=== PATIENT | female | born 1950 | race Two or more races ===

== ENCOUNTER 2024-03-04 16:53 | Inpatient (IN) | payer MEDICARE, OTHER ==
[~2024-03-04] VITALS: Ht 160 cm; Wt 63.0 kg
[~2024-03-04 16:53] MED LIST: CLON0.1T PO
[2024-03-04 17:29] VITALS: PULSE 107; RESP 19; O2SAT 92
[2024-03-04 17:38] LABS: Basophils # (auto) 0 10 ^3/uL (0-0.2); Basophils % (auto) 0.1 % (0.0-2.0); Eosinophils # (auto) 0 10 ^3/uL (0-0.8); Hematocrit 34.9 % (36.0-46.0); Hemoglobin 11.3 g/dL (12.2-16.2); Lymphocytes # (auto) 0.6 10 ^3/uL (0.4-5.4); Lymphocytes % (auto) 3.9 % (10.0-50.0); Mean Corpuscular Hemoglobin 28.6 pg (28.0-32.0); Mean Corpuscular Hgb Conc. 32.4 g/dL (32.0-36.0); Mean Corpuscular Volume 88.3 fL (80.0-100.0); Monocytes # (auto) 0.3 10 ^3/uL (0-1.3); Monocytes % (auto) 2.4 % (0.0-12.0); Neutrophils # (auto) 13.3 10 ^3/uL (1.6-8.6); Neutrophils % (auto) 93.6 % (37.0-80.0); Platelet Count (auto) 153 10^3/uL (140-450); Red Blood Cells 3.95 10^6/uL (4.0-5.20); Red Cell Distribution Width 14.2 % (11.8-14.3); White Blood Cell 14.2 10^3/uL (4.4-10.8)
[2024-03-04 17:45] LABS: Chloride 108 mmol/L (98-107); Potassium 3.7 mmol/L (3.5-5.1); Sodium 140 mmol/L (136-145)
[2024-03-04 17:46] LABS: Anion Gap 9 (5-15); Calcium 8.9 mg/dL (8.7-10.4); Carbon Dioxide 23 mmol/L (20-31)
[2024-03-04] MEDS: FUROSEMIDE 40 MG/4 ML VIAL IV ONE (17:48)
[2024-03-04] MEDS: metroNIDAZOLE 500MG/100ML 100 ML IV ONE (17:48)
[2024-03-04] MEDS: SODIUM CHLORIDE 0.9% 1,000 ML IV ONE ×2 (17:49→18:55)
[2024-03-04] MEDS: cefTRIAXone 1GM/50ML D5W 50 ML IV ONE (17:49)
[2024-03-04 17:51] LABS: BUN/Creatinine Ratio 10.4 (10.0-20.0); Blood Urea Nitrogen 34 mg/dL (9-23); Glucose 86 mg/dL (74-106)
[2024-03-04 19:40] LABS: Urine Bacteria FEW /hpf (None Seen); Urine Blood 3+ /uL (Negative); Urine Clarity Turbid (Clear); Urine Color Colorless (Yellow); Urine Mucus FEW (None Seen); Urine Protein, UAD 1+ (Negative); Urine Specific Gravity 1.006 (1.001-1.035); Urine Urobilinogen Normal (Negative); Urine WBC 359 /hpf (0 - 5); Urine WBC Clumps PRESENT /hpf (None Seen); Urine pH 6.5 (5.0-9.0)
[2024-03-04 19:57] VITALS: PULSE 103; RESP 22; O2SAT 97
[2024-03-04] MEDS ORDERED: MORPHINE SULFATE INJ 2 MG/ml SYRG IV PRN (22:00)
[2024-03-04] MEDS ORDERED: NITROGLYCERIN 0.4 MG SL TAB SL PRN (22:00)
[2024-03-04] MEDS ORDERED: ACETAMINOPHEN 325 MG TAB PO PRN (22:00)
[2024-03-04] MEDS ORDERED: FAMOTIDINE (10MG/ML) 2ML VL IV SCH (22:00)
[2024-03-04] MEDS ORDERED: DOCUSATE SOD 100 MG CAP PO PRN (22:00)
[2024-03-04] MEDS ORDERED: ONDANSETRON HCL 4 MG/2 ML VIAL IV PRN (22:00)
[2024-03-04] MEDS: SODIUM CHLOR 0.9% PF (SALINE LOCK) 10ML VIAL/SYR IV SCH (22:16)
[2024-03-04 22:25] VITALS: BP 135/81; PULSE 121; RESP 23; TEMP 98.4; O2SAT 92; O2SAT 99
[2024-03-04 23:48] VITALS: BP 144/82; PULSE 108; RESP 20; TEMP 98.2; O2SAT 96
[2024-03-04] MEDS ORDERED: MET50T PO (23:57)
[2024-03-04] MEDS ORDERED: CLOP75TA70 PO (23:57)
[2024-03-04] MEDS ORDERED: LOSA-534 PO (23:57)
[2024-03-05] VITALS (13 sets, daily range): BP systolic 115–157; BP diastolic 76–97; PULSE 87–103; RESP 16–20; TEMP 97.6–98.7; O2SAT 96–100
[2024-03-05] MEDS: metroNIDAZOLE 500MG/100ML 100 ML IV SCH (05:22)
[2024-03-05 06:18] LABS: Basophils # (auto) 0 10 ^3/uL (0-0.2); Basophils % (auto) 0.1 % (0.0-2.0); Eosinophils # (auto) 0 10 ^3/uL (0-0.8); Eosinophils % (auto) 0.3 % (0.0-7.0); Hematocrit 30.4 % (36.0-46.0); Hemoglobin 10.4 g/dL (12.2-16.2); Lymphocytes # (auto) 0.6 10 ^3/uL (0.4-5.4); Lymphocytes % (auto) 5.8 % (10.0-50.0); Mean Corpuscular Hgb Conc. 34.1 g/dL (32.0-36.0); Mean Corpuscular Volume 87.9 fL (80.0-100.0); Monocytes # (auto) 0.2 10 ^3/uL (0-1.3); Monocytes % (auto) 2.5 % (0.0-12.0); Neutrophils # (auto) 9.1 10 ^3/uL (1.6-8.6); Neutrophils % (auto) 91.3 % (37.0-80.0); Platelet Count (auto) 126 10^3/uL (140-450); Red Blood Cells 3.46 10^6/uL (4.0-5.20); Red Cell Distribution Width 14.1 % (11.8-14.3)
[2024-03-05 06:41] LABS: Albumin 3.2 g/dL (3.2-4.8); Alkaline Phosphatase 79 U/L (46-116); Anion Gap 9 (5-15); Aspartate Aminotransferase 14 U/L (13-40); BUN/Creatinine Ratio 14.4 (10.0-20.0); Bilirubin, Total 0.3 mg/dL (0.2-1.0); Calcium 8.1 mg/dL (8.7-10.4); Carbon Dioxide 23 mmol/L (20-31); Chloride 109 mmol/L (98-107); Glucose 83 mg/dL (74-106); Potassium 3.6 mmol/L (3.5-5.1); Sodium 141 mmol/L (136-145); Total Protein 5.2 g/dL (5.7-8.2)
[2024-03-05 06:50] LABS: Alanine Aminotransferase < 9 U/L (7-40); Blood Urea Nitrogen 44 mg/dL (9-23)
[2024-03-05] MEDS: ALBUTEROL SULF 2.5 MG/0.5ML(0.5%) NEB SOLN NEB PRN (07:43)
[2024-03-05] MEDS: cefTRIAXone 1GM/50ML D5W 50 ML IV SCH (08:56)
[2024-03-05] MEDS: FAMOTIDINE (10MG/ML) 2ML VL IV SCH (08:56)
[2024-03-05] MEDS: FUROSEMIDE 40 MG/4 ML VIAL IV SCH (08:57)
[2024-03-05] MEDS: CLOPIDOGREL BISULFATE 75 MG TAB PO SCH (08:57)
[2024-03-05] MEDS: ASPirin 81 mg TAB PO SCH (08:57)
[2024-03-05] MEDS: SODIUM CHLORIDE 0.9% 1,000 ML IV SCH (16:27)
[2024-03-05] MEDS: HYDROcodone-ACET 5/325MG TAB PO PRN (17:56)
[2024-03-06] VITALS (10 sets, daily range): BP systolic 115–145; BP diastolic 72–90; PULSE 76–97; RESP 16–18; TEMP 98–98.8; O2SAT 92–100
[2024-03-06 07:22] LABS: Anion Gap 10 (5-15); Calcium 8.3 mg/dL (8.7-10.4); Carbon Dioxide 24 mmol/L (20-31); Chloride 107 mmol/L (98-107); Sodium 141 mmol/L (136-145)
[2024-03-06 07:27] LABS: Glucose 92 mg/dL (74-106)
[2024-03-06 07:28] LABS: Blood Urea Nitrogen 40 mg/dL (9-23)
[2024-03-06] MEDS: ENOXAPARIN SOD 30 MG/0.3 ML SYRINGE SC SCH (09:00)
[2024-03-06] MEDS: POTASSIUM EFFERVESENT TAB 25 MEQ PO ONE (10:44)
[2024-03-06 12:23] LABS: INR 1.16 (0.9-1.15); Partial Thromboplastin Time 27.3 SEC (24.5-34.5); Prothrombin Time 12.2 sec (9.3-11.8)
[2024-03-07] VITALS (12 sets, daily range): BP systolic 134–162; BP diastolic 78–95; PULSE 66–98; RESP 16–18; TEMP 97.5–99; O2SAT 93–98
[2024-03-07] MEDS: hydrALAZINE HCL 20 MG/ML VL IV ONE (05:08)
[2024-03-07] MEDS: POTASSIUM EFFERVESENT TAB 25 MEQ PO ONE (08:15)
[2024-03-07] MEDS: METOPROLOL SUCCINATE XL 50 MG TAB PO SCH (09:08)
[2024-03-07 11:31] LABS: Basophils # (auto) 0 10 ^3/uL (0-0.2); Basophils % (auto) 0.5 % (0.0-2.0); Eosinophils # (auto) 0.1 10 ^3/uL (0-0.8); Eosinophils % (auto) 1.5 % (0.0-7.0); Hematocrit 35.8 % (36.0-46.0); Hemoglobin 11.8 g/dL (12.2-16.2); Lymphocytes # (auto) 0.8 10 ^3/uL (0.4-5.4); Lymphocytes % (auto) 11.8 % (10.0-50.0); Mean Corpuscular Hemoglobin 28.9 pg (28.0-32.0); Mean Corpuscular Hgb Conc. 32.9 g/dL (32.0-36.0); Mean Corpuscular Volume 87.7 fL (80.0-100.0); Monocytes # (auto) 0.7 10 ^3/uL (0-1.3); Monocytes % (auto) 10.5 % (0.0-12.0); Neutrophils # (auto) 4.9 10 ^3/uL (1.6-8.6); Neutrophils % (auto) 75.7 % (37.0-80.0); Nucleated Red Blood Cells % 0.1 %; Platelet Count (auto) 121 10^3/uL (140-450); Red Blood Cells 4.09 10^6/uL (4.0-5.20); Red Cell Distribution Width 14.5 % (11.8-14.3); White Blood Cell 6.5 10^3/uL (4.4-10.8)
[2024-03-07 11:39] LABS: Chloride 110 mmol/L (98-107); Potassium 3.2 mmol/L (3.5-5.1); Sodium 142 mmol/L (136-145)
[2024-03-07 11:41] LABS: Anion Gap 5 (5-15); Calcium 8.5 mg/dL (8.7-10.4); Carbon Dioxide 27 mmol/L (20-31)
[2024-03-07 11:46] LABS: BUN/Creatinine Ratio 16.4 (10.0-20.0); Blood Urea Nitrogen 35 mg/dL (9-23); Glucose 86 mg/dL (74-106)
[2024-03-07] MEDS ORDERED: POTASSIUM CHL 20 Meq TABLET PO ONE (15:15)
[2024-03-07] MEDS: POTASSIUM CHL 20 Meq TABLET PO ONE (16:04)
[2024-03-07] MEDS ORDERED: hydrALAZINE HCL 20 MG/ML VL IV PRN (18:45)
[2024-03-08] VITALS (9 sets, daily range): BP systolic 141–169; BP diastolic 72–105; PULSE 72–88; RESP 15–19; TEMP 97.6–98.4; O2SAT 92–99
[2024-03-08 06:53] LABS: Basophils # (auto) 0 10 ^3/uL (0-0.2); Basophils % (auto) 0.4 % (0.0-2.0); Eosinophils # (auto) 0.1 10 ^3/uL (0-0.8); Eosinophils % (auto) 1.7 % (0.0-7.0); Hematocrit 36.4 % (36.0-46.0); Hemoglobin 11.6 g/dL (12.2-16.2); Lymphocytes # (auto) 0.8 10 ^3/uL (0.4-5.4); Lymphocytes % (auto) 11.5 % (10.0-50.0); Mean Corpuscular Hemoglobin 28.5 pg (28.0-32.0); Mean Corpuscular Hgb Conc. 31.9 g/dL (32.0-36.0); Mean Corpuscular Volume 89.5 fL (80.0-100.0); Monocytes # (auto) 0.8 10 ^3/uL (0-1.3); Monocytes % (auto) 12.4 % (0.0-12.0); Neutrophils # (auto) 4.9 10 ^3/uL (1.6-8.6); Nucleated Red Blood Cells % 0.1 %; Platelet Count (auto) 127 10^3/uL (140-450); Red Blood Cells 4.07 10^6/uL (4.0-5.20); Red Cell Distribution Width 14.8 % (11.8-14.3); White Blood Cell 6.6 10^3/uL (4.4-10.8)
[2024-03-08 07:05] LABS: Anion Gap 8 (5-15); Carbon Dioxide 26 mmol/L (20-31); Chloride 108 mmol/L (98-107); Potassium 3.2 mmol/L (3.5-5.1); Sodium 142 mmol/L (136-145)
[2024-03-08 07:06] LABS: Calcium 8.4 mg/dL (8.7-10.4)
[2024-03-08 07:10] LABS: BUN/Creatinine Ratio 16.4 (10.0-20.0); Blood Urea Nitrogen 30 mg/dL (9-23); Glucose 88 mg/dL (74-106)
[2024-03-08] MEDS: POTASSIUM CHL 20 Meq TABLET PO ONE (11:30)
[2024-03-08 12:52] LABS: Uric Acid 7.1 mg/dL (3.1-7.8)
[2024-03-08 12:55] LABS: Phosphorus 2.5 mg/dL (2.4-5.1)
[2024-03-08] MEDS: hydrALAZINE HCL 20 MG/ML VL IV PRN (22:36)
[2024-03-09] VITALS (12 sets, daily range): BP systolic 136–156; BP diastolic 77–93; PULSE 66–86; RESP 13–20; TEMP 98–99.2; O2SAT 95–99
[2024-03-09 07:55] LABS: Basophils # (auto) 0 10 ^3/uL (0-0.2); Basophils % (auto) 0.7 % (0.0-2.0); Eosinophils # (auto) 0.1 10 ^3/uL (0-0.8); Hematocrit 36.4 % (36.0-46.0); Hemoglobin 11.7 g/dL (12.2-16.2); Lymphocytes # (auto) 0.8 10 ^3/uL (0.4-5.4); Lymphocytes % (auto) 14.2 % (10.0-50.0); Mean Corpuscular Hemoglobin 28.2 pg (28.0-32.0); Mean Corpuscular Hgb Conc. 32.1 g/dL (32.0-36.0); Mean Corpuscular Volume 87.8 fL (80.0-100.0); Monocytes # (auto) 0.7 10 ^3/uL (0-1.3); Monocytes % (auto) 13.3 % (0.0-12.0); Neutrophils # (auto) 3.8 10 ^3/uL (1.6-8.6); Neutrophils % (auto) 69.8 % (37.0-80.0); Platelet Count (auto) 149 10^3/uL (140-450); Red Blood Cells 4.15 10^6/uL (4.0-5.20); Red Cell Distribution Width 14.9 % (11.8-14.3); White Blood Cell 5.5 10^3/uL (4.4-10.8)
[2024-03-09 08:05] LABS: Anion Gap 7 (5-15); Carbon Dioxide 27 mmol/L (20-31); Chloride 111 mmol/L (98-107); Potassium 3.9 mmol/L (3.5-5.1); Sodium 145 mmol/L (136-145)
[2024-03-09 08:06] LABS: Calcium 8.3 mg/dL (8.7-10.4)
[2024-03-09 08:11] LABS: BUN/Creatinine Ratio 23.3 (10.0-20.0); Blood Urea Nitrogen 35 mg/dL (9-23); Glucose 93 mg/dL (74-106)
[2024-03-09] MEDS: METOPROLOL SUCCINATE XL 50 MG TAB PO SCH (10:48)
[2024-03-09] MEDS ORDERED: LIDOCAINE 2%HCL (LOCAL ANESTH.) INJ 20ML MDV ONE (12:25)
[2024-03-09] MEDS ORDERED: IODIXANOL 320MG/ML 100ML BTL IV ONE (12:28)
[2024-03-09] MEDS ORDERED: fentaNYL CITRATE 100 MCG/2 ML VL ONE (12:44)
[2024-03-09] MEDS ORDERED: MIDAZOLAM HCL 2MG/2ML 2ml VIAL (1mg/ml) ONE (12:45)
[2024-03-10] VITALS (11 sets, daily range): BP systolic 141–177; BP diastolic 87–99; PULSE 76–87; RESP 16–20; TEMP 36.9; O2SAT 93–98
[2024-03-10] MEDS: cloNIDine HCL 0.1 MG TAB PO PRN (04:37)
[2024-03-10 12:29] LABS: Chloride 109 mmol/L (98-107); Potassium 3.8 mmol/L (3.5-5.1); Sodium 143 mmol/L (136-145)
[2024-03-10 12:31] LABS: Anion Gap 8 (5-15); Calcium 8.6 mg/dL (8.7-10.4); Carbon Dioxide 26 mmol/L (20-31)
[2024-03-10 12:35] LABS: Basophils # (auto) 0 10 ^3/uL (0-0.2); Basophils % (auto) 0.6 % (0.0-2.0); Eosinophils # (auto) 0.3 10 ^3/uL (0-0.8); Eosinophils % (auto) 4.1 % (0.0-7.0); Hematocrit 36.9 % (36.0-46.0); Hemoglobin 11.4 g/dL (12.2-16.2); Lymphocytes # (auto) 0.9 10 ^3/uL (0.4-5.4); Lymphocytes % (auto) 12.5 % (10.0-50.0); Mean Corpuscular Hemoglobin 28.8 pg (28.0-32.0); Mean Corpuscular Hgb Conc. 30.8 g/dL (32.0-36.0); Mean Corpuscular Volume 93.7 fL (80.0-100.0); Monocytes # (auto) 0.8 10 ^3/uL (0-1.3); Monocytes % (auto) 11.2 % (0.0-12.0); Neutrophils % (auto) 71.6 % (37.0-80.0); Nucleated Red Blood Cells % 0.1 %; Platelet Count (auto) 118 10^3/uL (140-450); Red Blood Cells 3.94 10^6/uL (4.0-5.20); Red Cell Distribution Width 15.5 % (11.8-14.3)
[2024-03-10 12:36] LABS: BUN/Creatinine Ratio 22.3 (10.0-20.0); Blood Urea Nitrogen 29 mg/dL (9-23); Glucose 98 mg/dL (74-106)
[2024-03-10] MEDS ORDERED: CEFP200T15 PO (17:53)
[2024-03-10] MEDS ORDERED: METR-344 PO (17:53)
[2024-03-10] MEDS: MORPHINE SULFATE INJ 2 MG/ml SYRG IV PRN (23:19)
[2024-03-11 00:15] VITALS: BP 157/95; PULSE 70; RESP 16; TEMP 97.9; O2SAT 96
[2024-03-11 05:00] VITALS: BP_SYST 157; BP_DIAS 71; BP_DIAS 91; PULSE 79; RESP 14; TEMP 98.4; O2SAT 97
[2024-03-11 08:00] VITALS: PULSE 78
[2024-03-11 08:15] VITALS: PULSE 83; RESP 16; O2SAT 97
[2024-03-11 09:00] VITALS: BP 162/92; PULSE 83; RESP 17; TEMP 98.3; O2SAT 97
[2024-03-11 10:00] VITALS: O2SAT 97
== END 2024-03-11 12:20 | disposition home or self-care (01) | DRG 871 ==
LOC: EDBD 16:53 → ER 16:53 → TELE 21:52 → TELE-WESTW 21:57
PROVIDERS: ADMIT Student in an Organized Health Care Education/Training Program; ATTEND Student in an Organized Health Care Education/Training Program
PROC: 0T9130Z Drainage of Left Kidney with Drainage Device, Percutaneous Approach (ICD-10-PCS; principal; 2024-03-09)
DX: A41.9 Sepsis, unspecified organism (principal); N17.0 Acute kidney failure with tubular necrosis; N13.6 Pyonephrosis; F05 Delirium due to known physiological condition; D64.9 Anemia, unspecified; E86.9 Volume depletion, unspecified; N18.9 Chronic kidney disease, unspecified; E87.6 Hypokalemia; I71.40 Abdominal aortic aneurysm, without rupture, unspecified; Z86.73 Personal history of transient ischemic attack (TIA), and cerebral infarction without residual deficits; Z88.2 Allergy status to sulfonamides; Z87.442 Personal history of urinary calculi; Z79.02 Long term (current) use of antithrombotics/antiplatelets; Z87.891 Personal history of nicotine dependence; F03.90 Unspecified dementia, unspecified severity, without behavioral disturbance, psychotic disturbance, mood disturbance, and anxiety; I12.9 Hypertensive chronic kidney disease with stage 1 through stage 4 chronic kidney disease, or unspecified chronic kidney disease
CPT/HCPCS: 36415; 50432; 74176; 76775; 76942; 80048; 80053; 81001; 82306; 83605; 83615; 83880; 83970; 84100; 84550; 85025; 85610; 85730; 87070; 87077; 87086; 87186; 87205; 93005; 93306; 94640; 99152; 99291; G0378; J2250; J3490; Q9967

== ENCOUNTER 2024-03-16 11:59 | Inpatient (IN) | payer MEDICARE ==
[~2024-03-16] VITALS: Ht 160 cm; Wt 58.2 kg
[~2024-03-16 11:59] MED LIST changes: +CEFP200T15 PO; +CLOP75TA70 PO; +LOSA-534 PO; +MET50T PO; +METR-344 PO
--- NOTE | 2024-03-16 12:56 | ED.PDOC ---
HPI (NEURO) HPI Comments 74y F who presents to the ED for chief complaint of dizziness. Per daughter, pt was PCP office earlier this AM for regular appt. Pt started to have dizziness while ambulating and was referred to the ED. Pt now in the ED, unsteady while ambulating and daughter seen helping pt walk in the ED. Pt has noted leg swelling to the LLE. Pt at [facility] 1 week prior for sepsis and hospitalized. Pt otherwise is alert and oriented x 4 and able to answer all questions. Pt denies headache, chest pain, shortness of breath, nausea, vomiting, fever, cough, chills, dysuria, or hematuria. Pt otherwise denies any other symptoms at this time. Pt has noted history of AAA, HTN and kidney stones. Chief Complaint: Dizziness Time Seen by MD: 12:54 Reviewed Notes: Medications, Allergies Information Source: Patient, Relative Mode of Arrival: Ambulatory Brought in by: daughter Past Medical History PAST MEDICAL HISTORY: CHF, HTN, Kidney Stones Past Medical History (Other): AAA Surgical History: Denies all surgeries CIVIL ENGINEERING PROJECT DESIGNER History: No Pertinent CIVIL ENGINEERING PROJECT DESIGNER History Family History Family History: Reviewed,noncontributory to illness, No family hx of Cancer, No family hx of DM, No family hx of Heart kallie, No family hx of HTN, No family hx ofKidney kallie, No family hx of Liver kallie, No family hx of Lung kallie, No family hx of Stroke Social History Smoker: Non-Smoker Alcohol: Denies ETOH Use Drugs: Denies Drug Use Lives In: Home Constitutional: denies: chills, diaphoresis, fatigue, fever, malaise, sweats, weakness, others EENTM: denies: blurred vision, double vision, ear bleeding, ear discharge, ear drainage, ear pain, ear ringing, eye pain, eye redness, hearing loss, mouth pain, mouth swelling, nasal discharge, nose bleeding, nose congestion, nose pain, photophobia, tearing, throat pain, throat swelling, voice changes, others Respiratory: denies: cough, hemoptysis, orthopnea, SOB at rest, shortness of breath, SOB with excertion, stridor, wheezing, others Cardiovascular: denies: chest pain, dizzy spells, diaphoresis, Dyspnea on exertion, edema, irregular heart beat, left arm pain, lightheadedness, palpitations, PND, syncope, others Gastrointestinal: denies: abdomen distended, abdominal pain, blood streaked bowels, constipated, diarrhea, dysphagia, difficulty swallowing, hematemesis, melena, nausea, poor appetite, poor fluid intake, rectal bleeding, rectal pain, vomiting, others Genitourinary: denies: abnormal vagina bleeding, burning, dyspareunia, dysuria, flank pain, frequency, hematuria, incontinence, pain, , vagina d ischarge, urgency, others Neurological: reports: dizziness; denies: fainting, headache, left sided numbness, left sided weakness, numbness, paresthesia, pre-existing deficit, right sided numbness, right sided weakness, seizure, speech problems, tingling, tremors, weakness, others Musculoskeletal: denies: back pain, gout, joint pain, joint swelling, muscle pain, muscle stiffness, neck pain, others Integumetry: denies: bruises, change in color, change in hair/nails, dryness, laceration, lesions, lumps, rash, wounds, others Allergic/Immunocompromised: denies: Difficulty Healing, Frequent Infections, Hives, Itching, others Hematologic/Lymphatic: denies: anemia, blood clots, easy bleeding, easy bruising, swollen glands, others Endocrine: denies: excessive hunger, excessive sweating, excessive thirst, excessive urination, flushing, intolerance to cold, intolerance to heat, unexplained weight gain, unexplained weight loss, others Psychiatric: denies: anxiety, bipolar disorder, depression, hopeless, panic disorder, schizophrenia, sleepless, suicidal, others All Other Systems: Reviewed and Negative Physical Exam General Appearance: Moderate Distress HEENT: Normal ENT Inspection, Pharynx Normal, TMs Normal Neck: Full Range of Motion, Non-Tender, Normal, Normal Inspection Respiratory: Chest Non-Tender, Lungs Clear, No Accessory Muscle Use, No Respiratory Distress, Normal Breath Sounds Cardiovascular: No Edema, No JVD, No Murmur, No Gallop, Normal Peripheral Pu lses, Regular Rate/Rhythm Breast Exam: Deferred Gastrointestinal: No Organomegaly, Non Tender, No Pulsatile Mass, Normal Bowel Sounds, Soft Genitalia: Deferred Pelvic: Deferred Rectal: Deferred Extremities: Swelling (Bilateral lower extremity) Musculoskeletal : Apperance: Normal Neurologic: Alert, legal analyst II-XII nml as Tested, No Motor Deficits, Normal Affect, Normal Mood, No Sensory Deficits Cerebellar Function: NOT DONE Reflexes: NOT DONE Skin: Dry, Normal Color, Warm Peripheral Pulses: 3+ Radial (R), 3+ Radial (L) Lymphatic: No Adenopathy Was a procedure done? Was a procedure done?: No Differential Diagnosis (SZ) Seizure: Psychogenic Seizure, Closed Head Injury, CVA/TIA General Weakness: Anemia, CVA, Dysrhythmia, Electrolyte imbalance, Encephalopathy, Hypoglycemia, Hypotension, Labyrinthitis, TIA, Vertigo: central, Vertigo: peripheral, Vestibular neuronitis X-Ray, Labs, Meds, VS Vital Signs Date Time Temp Pulse Resp B/P (MAP) Pulse Ox O2 Delivery O2 Flow Rate FiO2 03/16/24 14:23 107 18 154/112 (126) 95 03/16/24 12:00 97.6 94 20 141/99 (113) 96 Lab Test 03/16/24 13:10 03/16/24 12:20 Range/Units White Blood Count 10.3 # 4.4-10.8 10^3/uL Red Blood Count 4.13 4.0-5.20 10^6/uL Hemoglobin 12.0 L 12.2-16.2 g/dL Hematocrit 36.9 36.0-46.0 % Mean Corpuscular Volume 89.2 # 80.0-100.0 fL Mean Corpuscular Hemoglobin 29.0 28.0-32.0 pg Mean Corpuscular Hemoglobin Concent 32.5 32.0-36.0 g/dL Red Cell Distribution Width 14.8 H 11.8-14.3 % Platelet Count 247 140-450 10^3/uL Mean Platelet Volume 10.1 6.9-10.8 fL Neutrophils (%) (Auto) 69.0 37.0-80.0 % Lymphocytes (%) (Auto) 16.4 10.0-50.0 % Monocytes (%) (Auto) 8.9 0.0-12.0 % Eosinophils (%) (Auto) 4.6 0.0-7.0 % Basophils (%) (Auto) 1.1 0.0-2.0 % Neutrophils # (Auto) 7.1 1.6-8.6 10 ^3/uL Lymphocytes # (Auto) 1.7 0.4-5.4 10 ^3/uL Monocytes # (Auto) 0.9 0-1.3 10 ^3/uL Eosinophils # (Auto) 0.5 0-0.8 10 ^3/uL Basophils # (Auto) 0.1 0-0.2 10 ^3/uL Nucleated Red Blood Cells 0.2 % Sodium Level 139 136-145 mmol/L Potassium Level 4.4 3.5-5.1 mmol/L Chloride Level 106 98-107 mmol/L Carbon Dioxide Level 25 20-31 mmol/L Anion Gap 8 5-15 Blood Urea Nitrogen 19 9-23 mg/dL Creatinine 1.72 #H 0.550-1.02 mg/dL Glomerular Filtration Rate Calc 31 >90 mL/min BUN/Creatinine Ratio 11.0 10.0-20.0 Serum Glucose 95 74-106 mg/dL Calcium Level 9.2 8.7-10.4 mg/dL Troponin I High Sensitivity 7 </=34 ng/L POC Glucose 96 70-106 mg/dl PROCEDURE(s): HWOCT - HEAD WITHOUT CONTRAST IMPRESSION: 1. No acute intracranial process. 2. Chronic ischemic changes as described above. Patient alert. Complaining of dizziness. Can not ambulate without falling. Vitals stable. Kidney function elevated. Mild anemia. Blood pressure elevated. Was given clonidine. Possibly need MRI. EKG reviewed does not show any acute changes. Reviewed her previous visit. Explained to the patient. Continue cardiac monitoring. Time of 1ST Reevaluation: 13:30 Reevaluation 1ST: Unchanged Patient Education/Counseling: Diagnosis, Treatment Family Education/Counseling: Diagnosis, Treatment Departure 1 Departure Time of Disposition: 15:20 Impression: Primary Impression: Acute on chronic renal failure Qualified Codes: N17.9 - Acute kidney failure, unspecified; N18.9 - Chronic kidney disease, unspecified Additional Impressions: TIA (transient ischemic attack) Acute on chronic congestive heart failure Qualified Codes: I50.43 - Acute on chronic combined systolic (congestive) and diastolic (congestive) heart failure Disposition: ADMITTED INPATIENT Admit to: Med Surg Condition: Guarded Critical Care Note Critical Care Time?: Yes (45 min-critical care time only) Stability Stability form required: No Heart Score Heart Score: Heart Score Response (Comments) Value History Slightly Suspicious 0 EKG Normal 0 Age >65 2 Risk Factors >3 or Hx ASHD 2 Troponin Normal limit 0 Total 4 I personally scribed for BLANCO AHUJA MD ([email or web address]) on 03/16/24 at 12:56. Electronically submitted by Shree Chowdary ([employer]). I personally scribed for BLANCO AHUJA MD ([email or web address]) on 03/16/24 at 16:45. Electronically submitted by Shree Chowdary ([email or web address]). BLANCO AHUJA MD Mar 16, 2024 12:56
[2024-03-16 13:44] LABS: Basophils # (auto) 0.1 10 ^3/uL (0-0.2); Basophils % (auto) 1.1 % (0.0-2.0); Eosinophils # (auto) 0.5 10 ^3/uL (0-0.8); Eosinophils % (auto) 4.6 % (0.0-7.0); Hematocrit 36.9 % (36.0-46.0); Lymphocytes # (auto) 1.7 10 ^3/uL (0.4-5.4); Lymphocytes % (auto) 16.4 % (10.0-50.0); Mean Corpuscular Hgb Conc. 32.5 g/dL (32.0-36.0); Mean Corpuscular Volume 89.2 fL (80.0-100.0); Monocytes # (auto) 0.9 10 ^3/uL (0-1.3); Monocytes % (auto) 8.9 % (0.0-12.0); Neutrophils # (auto) 7.1 10 ^3/uL (1.6-8.6); Nucleated Red Blood Cells % 0.2 %; Platelet Count (auto) 247 10^3/uL (140-450); Red Blood Cells 4.13 10^6/uL (4.0-5.20); Red Cell Distribution Width 14.8 % (11.8-14.3); White Blood Cell 10.3 10^3/uL (4.4-10.8)
[2024-03-16 13:47] LABS: Chloride 106 mmol/L (98-107); Potassium 4.4 mmol/L (3.5-5.1); Sodium 139 mmol/L (136-145)
[2024-03-16 13:48] LABS: Anion Gap 8 (5-15); Calcium 9.2 mg/dL (8.7-10.4); Carbon Dioxide 25 mmol/L (20-31)
[2024-03-16 13:53] LABS: Blood Urea Nitrogen 19 mg/dL (9-23); Glucose 95 mg/dL (74-106)
--- NOTE | 2024-03-16 15:49 | DVH ---
EXAM: CT HEAD WITHOUT CONTRAST HISTORY: dizzy COMPARISON: None TECHNIQUE: Axial images of the head were obtained and reformatted in coronal and sagittal planes. All CT scans at this medical facility are performed using dose modulation techniques as appropriate t o a performed exam including the following: Automated exposure control was utilized; adjustment of th e MA and/or KV according to patient size; and use of iterative reconstruction technique. CT Dose: CTDI volume is 52.71 mGy. Dose-length product is 863.9 mGy*cm FINDINGS: there is age concordant generalized parenchymal volume loss. There is no evidence of acute intracrani al hemorrhage, mass, mass effect midline shift. There are hypodense foci in the bilateral basal gangl ia and in the right thalamic region likely chronic lacunar infarcts. There are chronic microvascular ischemic changes in the supratentorial white matter. There is no hydrocephalus or extra-axial fluid c ollection. The doan-white matter differentiation appears maintained. The calvarium is intact. There is a retention cysts in the left maxillary sinus. There is partial op acification of the left mastoid air cells. IMPRESSION: 1. No acute intracranial process. 2. Chronic ischemic changes as described above. HS:Y
[2024-03-16] MEDS ORDERED: NITROGLYCERIN 0.4 MG SL TAB SL PRN (20:30)
[2024-03-16] MEDS ORDERED: ONDANSETRON HCL 4 MG/2 ML VIAL IV PRN (20:30)
[2024-03-16] MEDS ORDERED: ACETAMINOPHEN 325 MG TAB PO PRN (20:30)
[2024-03-16] MEDS ORDERED: MORPHINE SULFATE INJ 2 MG/ml SYRG IV PRN ×2 (20:30)
[2024-03-16 21:04] VITALS: PULSE 94; RESP 18; O2SAT 95
--- NOTE | 2024-03-16 21:18 | DVH ---
CAROTID DOPPLER ULTRASOUND HISTORY: dizziness COMPARISON: None TECHNIQUE: Real time doan scale, color Doppler, and spectral duplex images are obtained through the c arotid and vertebral arteries. Findings: Peak systolic velocity right internal carotid artery is 87 cm/s and right common carotid artery is 47 cm/s. Ratio is 1.8. Antegrade flow noted in right vertebral artery. No significant atherosclerotic p laque noted within the right carotid arterial system. Peak systolic velocity left internal carotid artery is 85 cm/s and left common carotid artery is 51 c m/s. Ratio is 1.7. Antegrade flow noted in left vertebral artery. No significant atherosclerotic plaq ue noted within the left carotid arterial system. Impression: 1. No evidence of hemodynamically significant stenosis within the bilateral carotid arterial systems. 2. Antegrade flow within bilateral vertebral arteries. Stenosis ICA/CCA PSV ratio PSV 0-40% < 1.5 25-110 cm/s 40-59% < 1.8 > 120 cm/s 60-79% 1.8-3.7 > 130 cm/s 80-99% > 3.7 < 25 cm/s, > 250 cm/s
[2024-03-16 21:30] LABS: Basophils # (auto) 0.1 10 ^3/uL (0-0.2); Basophils % (auto) 1.2 % (0.0-2.0); Eosinophils # (auto) 0.5 10 ^3/uL (0-0.8); Eosinophils % (auto) 5.6 % (0.0-7.0); Hematocrit 35.3 % (36.0-46.0); Hemoglobin 11.6 g/dL (12.2-16.2); Lymphocytes # (auto) 1.2 10 ^3/uL (0.4-5.4); Lymphocytes % (auto) 13.4 % (10.0-50.0); Mean Corpuscular Hemoglobin 28.5 pg (28.0-32.0); Mean Corpuscular Hgb Conc. 32.8 g/dL (32.0-36.0); Monocytes # (auto) 0.9 10 ^3/uL (0-1.3); Monocytes % (auto) 9.7 % (0.0-12.0); Neutrophils # (auto) 6.5 10 ^3/uL (1.6-8.6); Neutrophils % (auto) 70.1 % (37.0-80.0); Nucleated Red Blood Cells % 0.1 %; Platelet Count (auto) 240 10^3/uL (140-450); Red Blood Cells 4.05 10^6/uL (4.0-5.20); Red Cell Distribution Width 14.5 % (11.8-14.3); White Blood Cell 9.3 10^3/uL (4.4-10.8)
[2024-03-16 21:46] LABS: Albumin 3.7 g/dL (3.2-4.8); Alkaline Phosphatase 80 U/L (46-116); Anion Gap 6 (5-15); Aspartate Aminotransferase 16 U/L (13-40); BUN/Creatinine Ratio 10.8 (10.0-20.0); Blood Urea Nitrogen 18 mg/dL (9-23); Calcium 9.3 mg/dL (8.7-10.4); Carbon Dioxide 29 mmol/L (20-31); Chloride 105 mmol/L (98-107); Glucose 100 mg/dL (74-106); Potassium 3.5 mmol/L (3.5-5.1); Sodium 140 mmol/L (136-145)
[2024-03-16 21:47] LABS: Bilirubin, Total 0.3 mg/dL (0.2-1.0); Total Protein 6.3 g/dL (5.7-8.2)
[2024-03-16 22:00] LABS: Alanine Aminotransferase < 9 U/L (7-40)
[2024-03-16] MEDS ORDERED: ENOXAPARIN SOD 30 MG/0.3 ML SYRINGE SC SCH (22:00)
[2024-03-16] MEDS: SODIUM CHLOR 0.9% PF (SALINE LOCK) 10ML VIAL/SYR IV SCH (22:00)
--- NOTE | 2024-03-16 23:53 | DVHHPRES ---
History of Present Illness Resident Creating Document: RHETT TAVERAS RESIDENT History of Present Illness SOCORRO PENDLETON is a 74 years old female with a PMH of CHF, HTN, nephrolithiasis, aneurysm, CVA, COPD presented to the ED with the chief complaints of dizziness. Today morning patient went to visit her PCP, felt dizziness while ambulating, PCP advised to go to ED for further management. Patient reported yesterday she had mechanical fall in house due to dizziness without LOC, nausea, vomiting. Patient also noted swelling of both lower limbs. Patient recently discharged from this facility 1 week ago after being treated for sepsis. On my assessment patient denies headache, chest pain, SOB, nausea, vomiting, fever, chills, and other associated symptoms Past Medical History CHF, HTN, nephrolithiasis, aneurysm, CVA, COPD Past Surgical History Nephrostomy tube placement left-sided Family History: None Past Social History The patient lives at home, smokes 3 cigarettes per day but denies alcohol or i llicit drugs abuse. Review of Systems Constitutional: No: Fever, Chills, Sweats, Weakness, Malaise, Other Eyes: No: Pain, Vision change, Conjunctivae inflammation, Eyelid inflammation, Other, Redness ENT: No: Ear pain, Ear discharge, Nose pain, Nose discharge, Nose congestion, Mouth pain, Mouth swelling, Throat pain, Throat swelling, Other Respiratory: No: Cough, Dry, Shortness of breath, SOB with excertion, Wheezing, Hemoptysis, Pleuritic Pain, Sputum, Wheezing, Other Cardiovascular: Edema, Lt Headedness Gastrointestinal: No: Nausea, Vomiting, Abdominal Pain, Diarrhea, Constipation, Melena, Hematochezia, Other Genitourinary: No Dysuria, No Frequency, No Incontinence, No Hematuria, No Retention, No Other Musculoskeletal: No: other, neck pain, shoulder pain, arm pain, back pain, hand pain, leg pain, foot pain Skin: No: Rash, Lesions, Jaundice, Bruising, Other Neurological: No: Weakness, Numbness, Incoordination, Change in speech, Confusion, Seizures, Other Allergies: Uncoded Allergies: sulfa (Allergy, Unknown, 03/04/24) Medications Current Medications Medications Dose Ordered Sig/Leydi Route Start Time Stop Time Status Last Admin Dose Admin Sodium Chloride 10 ml Q8HR IV 03/16/24 22:00 Acetaminophen 325 mg Q4HP PRN PO 03/16/24 20:30 Ondansetron HCl 4 mg Q4HP PRN IV 03/16/24 20:30 Morphine Sulfate 2 mg Q4HPRN PRN IV 03/16/24 20:30 Enoxaparin Sodium 30 mg DAILY SC 03/16/24 22:00 Nitroglycerin 0.4 mg Q5MINP PRN SL 03/16/24 20:30 Morphine Sulfate 2 mg Q30M PRN IV 03/16/24 20:30 Exam Vital Signs Vital Signs Date Time Temp Pulse Resp B/P (MAP) Pulse Ox O2 Delivery O2 Flow Rate FiO2 03/16/24 22:00 91 15 152/92 (112) 94 03/16/24 21:04 Room Air* 0 21 03/16/24 21:04 97.4 97.4 Exam Pt is lying on bed General Appearance: Alert, Oriented X3, Cooperative, Not in acute distress HEENT: Atraumatic, Mucous membranes moist/pink Respiratory: Clear to auscultation, Normal air movement, No added sounds Cardiovascular: Regular rate, Normal S1, Normal S2, No murmurs Abdominal: Nephrostomy tube in left side. Active bowel sounds, Soft, no distention, no tenderness Extremities:2+ BLE edema, Normal pulses, No tenderness Skin: No Significant rash, except past surgical scars Neuro: Normal speech, sensorimotor deficits none Psych/Mental Status: Mental status NL, Mood NL Nurse was there as sharperone during examination Labs/Xrays Labs Test 03/16/24 21:24 03/16/24 13:10 03/16/24 12:20 Range/Units White Blood Count 9.3 4.4-10.8 10^3/uL Red Blood Count 4.05 4.0-5.20 10^6/uL Hemoglobin 11.6 L 12.2-16.2 g/dL Hematocrit 35.3 L 36.0-46.0 % Mean Corpuscular Volume 87.0 80.0-100.0 fL Mean Corpuscular Hemoglobin 28.5 28.0-32.0 pg Mean Corpuscular Hemoglobin Concent 32.8 32.0-36.0 g/dL Red Cell Distribution Width 14.5 H 11.8-14.3 % Platelet Count 240 140-450 10^3/uL Mean Platelet Volume 9.7 6.9-10.8 fL Neutrophils (%) (Auto) 70.1 37.0-80.0 % Lymphocytes (%) (Auto) 13.4 10.0-50.0 % Monocytes (%) (Auto) 9.7 0.0-12.0 % Eosinophils (%) (Auto) 5.6 0.0-7.0 % Basophils (%) (Auto) 1.2 0.0-2.0 % Neutrophils # (Auto) 6.5 1.6-8.6 10 ^3/uL Lymphocytes # (Auto) 1.2 0.4-5.4 10 ^3/uL Monocytes # (Auto) 0.9 0-1.3 10 ^3/uL Eosinophils # (Auto) 0.5 0-0.8 10 ^3/uL Basophils # (Auto) 0.1 0-0.2 10 ^3/uL Nucleated Red Blood Cells 0.1 % Sodium Level 140 136-145 mmol/L Potassium Level 3.5 3.5-5.1 mmol/L Chloride Level 105 98-107 mmol/L Carbon Dioxide Level 29 20-31 mmol/L Anion Gap 6 5-15 Blood Urea Nitrogen 18 9-23 mg/dL Creatinine 1.66 H 0.550-1.02 mg/dL Glomerular Filtration Rate Calc 32 >90 mL/min BUN/Creatinine Ratio 10.8 10.0-20.0 Serum Glucose 100 74-106 mg/dL Calcium Level 9.3 8.7-10.4 mg/dL Total Bilirubin 0.3 0.2-1.0 mg/dL Aspartate Amino Transferase (AST) 16 13-40 U/L Alanine Aminotransferase (ALT) < 9 7-40 U/L Alkaline Phosphatase 80 46-116 U/L Total Protein 6.3 5.7-8.2 g/dL Albumin 3.7 3.2-4.8 g/dL Troponin I High Sensitivity 7 </=34 ng/L POC Glucose 96 70-106 mg/dl Assessment/Plan Assessment/Plan # Mechanical fall without LOC # dizziness unspecified -admitted to telemetry minute -Carotid Doppler showed no hemodynamically significant stenosis -head CT showed no acute changes but chronic changes -ordered orthostatic vital -monitor lab # Nephrolithiasis status post left nephrostomy tube # RACHNA prerenal vs obstuctive -monitor lab -ordered kidney ultrasound # Uncontrolled hypertension -monitor blood pressure -resumed home meds No gi ppx Cardiac diet Reconciled home med Goals of care discussed with the patient for more than 27 minutes: Full code status Case management discussed with Dr. Lozoya, patient's nurse Plan discussed with: Patient My Orders Orders - RHETT TAVERAS RESIDENT Procedure Category Date Status Time Admit ADMIT 03/16/24 Transmitted 20:25 Allergies COBY 03/16/24 In Process 20:25 Code Status CODE 03/16/24 Transmitted 20:25 Sodium Chloride Lock PHA 03/16/24 In Process (Saline Lock Ns) 22:00 Acetaminophen Tablet PHA 03/16/24 In Process (Tylenol Tablet) 20:30 Ondansetron Hcl PHA 03/16/24 In Process (Zofran) 20:30 Complete Blood Count LAB 03/17/24 Verified 04:00 Comprehensive LAB 03/17/24 Verified Metabolic Panel 04:00 Cardiac DIET 03/17/24 Transmitted Diet-2gna,Lofat,Lochol Breakfast Echo 2d Mode Cardiac US 03/16/24 Logged DOP 20:25 Carotid Duplx W Color US 03/16/24 Resulted DOP 20:25 Morphine Sulfate PHA 03/16/24 In Process Injection 20:30 Nitroglycerin PHA 03/16/24 In Process Sublingual (Ntrostat 20:30 Morphine Sulfate PHA 03/16/24 In Process Injection 20:30 Oxygen By Nasal RT 03/16/24 Transmitted Cannula 20:25 Stat Ekg For Chest COBY 03/16/24 In Process Pain 20:25 Notify Md Of Changes COBY 03/16/24 In Process From Base 20:25 Electromyographic Technician For COBY 03/16/24 In Process 24 Hours 20:25 Emergency Dysrhythmia COBY 03/16/24 In Process Protocol 20:25 Rhythm Strips Once COBY 03/16/24 In Process Every Shift 20:25 Enoxaparin Sodium PHA 03/16/24 In Process (Lovenox) 22:00 Clopidogrel Bisulfate PHA 03/17/24 In Process (Plavix) 10:00 Losartan Tablet PHA 03/17/24 In Process (Cozaar Tablet) 10:00 Metoprolol Tartrate PHA 03/17/24 In Process Tablet (Lopressor Ta 10:00 PTPTT LAB 03/17/24 Verified 04:00 Hemoglobin A1c LAB 03/16/24 Logged 23:31 Drug Screen LAB 03/16/24 Logged 23:31 Vitamin D, 25-Hydroxy LAB 03/16/24 Logged 23:31 Vitamin B12 LAB 03/16/24 Logged 23:31 Urinalysis LAB 03/16/24 Logged 23:31 Thyroid Stimulating LAB 03/16/24 Logged Hormone 23:31 B-Type Natriuretic LAB 03/16/24 Logged Peptide 23:38 Kidney US 03/16/24 Logged 23:42 RHETT TAVERAS RESIDENT Mar 16, 2024 23:53
[2024-03-16 23:54] VITALS: BP 156/82; PULSE 87; PULSE 88; RESP 18; TEMP 98.2; O2SAT 95; O2SAT 96
[2024-03-17] VITALS (10 sets, daily range): BP systolic 125–153; BP diastolic 71–81; PULSE 72–90; RESP 14–18; TEMP 98–99; O2SAT 91–96
[2024-03-17] MEDS: FUROSEMIDE 40 MG/4 ML VIAL IV ONE
--- NOTE | 2024-03-17 04:07 | DVH ---
INDICATION: 74 years old, Female; CKD. TECHNIQUE: Multiple real-time sonographic images of the kidneys and bladder were obtained. COMPARISON: US KIDNEY on DOS: 03/08/24, US KIDNEY on DOS: 03/06/24 FINDINGS: The right kidney measures 9 cm in length, which is normal in size. The left kidney measures 11 cm in length, which is normal in size. No large intraluminal masses are seen in the bladder SUBCENTIMETER NONOBSTRUCTING RENAL CALCULI MEASURING TO 0.7 CM IN THEl LEFT LOWER POLE and 0.7 CM RI GHT LOWER POLE. THERE IS MILD BILATERAL HYDRONEPHROSIS. IMPRESSION: SUBCENTIMETER NONOBSTRUCTING RENAL CALCULI MEASURING TO 0.7 CM IN THEl LEFT LOWER POLE and 0.7 CM RI GHT LOWER POLE. THERE IS MILD BILATERAL HYDRONEPHROSIS.
[2024-03-17 06:36] LABS: INR 1.13 (0.9-1.15); Partial Thromboplastin Time 25.9 SEC (24.5-34.5); Prothrombin Time 11.9 sec (9.3-11.8)
[2024-03-17 06:39] LABS: Basophils # (auto) 0.1 10 ^3/uL (0-0.2); Basophils % (auto) 1.2 % (0.0-2.0); Eosinophils # (auto) 0.5 10 ^3/uL (0-0.8); Eosinophils % (auto) 6.5 % (0.0-7.0); Hematocrit 32.2 % (36.0-46.0); Hemoglobin 10.6 g/dL (12.2-16.2); Lymphocytes % (auto) 14.7 % (10.0-50.0); Mean Corpuscular Hemoglobin 28.7 pg (28.0-32.0); Mean Corpuscular Hgb Conc. 32.9 g/dL (32.0-36.0); Mean Corpuscular Volume 87.3 fL (80.0-100.0); Monocytes # (auto) 0.7 10 ^3/uL (0-1.3); Monocytes % (auto) 9.5 % (0.0-12.0); Neutrophils # (auto) 4.8 10 ^3/uL (1.6-8.6); Neutrophils % (auto) 68.1 % (37.0-80.0); Nucleated Red Blood Cells % 0.1 %; Platelet Count (auto) 231 10^3/uL (140-450); Red Blood Cells 3.68 10^6/uL (4.0-5.20); Red Cell Distribution Width 14.7 % (11.8-14.3)
[2024-03-17 06:44] LABS: Albumin 3.3 g/dL (3.2-4.8); Alkaline Phosphatase 71 U/L (46-116); Anion Gap 7 (5-15); Aspartate Aminotransferase 13 U/L (13-40); Bilirubin, Total 0.4 mg/dL (0.2-1.0); Blood Urea Nitrogen 17 mg/dL (9-23); Calcium 8.8 mg/dL (8.7-10.4); Carbon Dioxide 29 mmol/L (20-31); Chloride 106 mmol/L (98-107); Glucose 90 mg/dL (74-106); Potassium 3.2 mmol/L (3.5-5.1); Sodium 142 mmol/L (136-145); Total Protein 5.6 g/dL (5.7-8.2)
[2024-03-17 06:49] LABS: Alanine Aminotransferase < 9 U/L (7-40)
--- NOTE | 2024-03-17 09:20 | DVH ---
CHEST RADIOGRAPH Indication:sob Technique: Single frontal view of the chest was obtained Comparison: None FINDINGS: Lines and Tubes: None Lungs: Bibasilar opacities. Pleura: No effusion. No pneumothorax. Cardiomediastinal contours: Unremarkable Bones: No acute osseous abnormality. IMPRESSION: Bibasilar opacities.
[2024-03-17] MEDS ORDERED: IPRATROPIUM BROM 0.5 MG/2.5ML INH SOL NEB PRN (10:00)
[2024-03-17] MEDS ORDERED: FUROSEMIDE 40 MG/4 ML VIAL IV SCH (10:00)
[2024-03-17] MEDS ORDERED: ALBUTEROL SULF 2.5 MG/0.5ML(0.5%) NEB SOLN NEB PRN (10:00)
[2024-03-17] MEDS: LOSARTAN POTASSIUM 50 MG TAB PO SCH (10:22)
[2024-03-17] MEDS: CLOPIDOGREL BISULFATE 75 MG TAB PO SCH (10:23)
[2024-03-17] MEDS: METOPROLOL TARTRATE 50 MG TAB PO SCH (10:23)
[2024-03-17] MEDS: POTASSIUM EFFERVESENT TAB 25 MEQ PO ONE (15:28)
[2024-03-17] MEDS: ENOXAPARIN SOD 30 MG/0.3 ML SYRINGE SC SCH (15:29)
--- NOTE | 2024-03-17 18:44 | DVHPNRES ---
Progress Note Date Seen: Mar 17, 2024 Resident Creating Document: NIC WRAY Has the PT tested + for MRSA If YES, has PT been informed?: No Medical Necessity Reason Pt with a Central, PICC or Fol: No Subjective Review of Systems SOCORRO PENDLETON is a 74-year-old female with a PMH of CHF, HTN, nephrolithiasis, aneurysm, CVA, and COPD who presented to the ED with the chief complaint of dizziness. The patient has dizziness since 2 years(post CVA) which has recently increased. This morning, the patient went to visit her PCP and felt dizzy while ambulating. The PCP advised her to go to the ED for further management. The patient reported that yesterday she had a mechanical fall at home due to dizziness without LOC, nausea, or vomiting. She also noted swelling of both lower limbs. The patient was recently discharged from this facility 1 week ago after being treated for sepsis and was recommended to use a wheelchair and home health care. On my assessment, the patient denies headache, chest pain, SOB, nausea, vomiting, fever, chills, and other associated symptoms. PMHx: CHF, HTN, nephrolithiasis, aneurysm, CVA, COPD PSHx: Nephrostomy tube placement left-sided due to renal stone Family history: Noncontributory Social history: The patient lives at home with her daughter, smokes 3 cigarettes per day, but denies alcohol or illicit drug abuse Home medication: Losartan, metoprolol, Plavix Allergic history: On physical examination, the patient was unremarkable. Lab studies showed potassium at 3.2, otherwise within normal limits. The patient was admitted for evaluation of dizziness. CT scan showed ischemic changes, carotid ultrasound was normal, and renal ultrasound was also normal. Fall precautions were taken and home medications were resumed. Patient reports: No new complaints Changes from previous H/P or p: No Changes Objective vital signs Vital Sign Date Time Temp Pulse Resp B/P (MAP) Pulse Ox O2 Delivery O2 Flow Rate FiO2 03/17/24 16:47 98.0 72 16 135/71 95 98.0 03/17/24 07:54 Room Air* 0 21 Total Intake and Output 03/16/24 03/16/24 03/17/24 15:00 23:00 07:00 Intake Total 120 ml Balance 120 ml medications Current Medications Medications Dose Ordered Sig/Leydi Route Start Time Stop Time Status Last Admin Dose Admin Sodium Chloride 10 ml Q8HR IV 03/16/24 22:00 03/17/24 15:31 10 ML Acetaminophen 325 mg Q4HP PRN PO 03/16/24 20:30 Ondansetron HCl 4 mg Q4HP PRN IV 03/16/24 20:30 Clopidogrel Bisulfate 75 mg DAILY PO 03/17/24 10:00 03/17/24 10:23 75 MG Losartan Potassium 50 mg BID PO 03/17/24 10:00 03/17/24 10:22 50 MG Metoprolol Tartrate 50 mg DAILY PO 03/17/24 10:00 03/17/24 10:23 50 MG Enoxaparin Sodium 30 mg DAILY SC 03/17/24 10:29 03/17/24 15:29 30 MG Ipratropium [place] 0.5 mg Q4HPRN PRN NEB 03/17/24 10:00 Albuterol 2.5 mg Q3HPRN PRN NEB 03/17/24 10:00 Examination General Appearance: Alert, Oriented X3, Cooperative, No acute distress HEENT: Atraumatic, PERRLA, EOMI, Mucous membrane moist/pink Respiratory: Clear to auscultation, Normal air movement Cardiovascular: Regular rate, Normal S1, Normal S2, No murmurs, no chest wall tenderness Abdominal: Normal bowel sounds, Soft, No tenderness, No hepatospenomegaly, No masses Extremities: No clubbing, No cyanosis, No edema, Normal pulses, No tenderness/swelling Skin: No rashes, No breakdown, No significant lesion laboratory and microbiology Laboratory Tests 03/17/24 05:54 Test 03/17/24 05:54 Range/Units Serum Glucose 90 74-106 mg/dL Microbiology Date/Time Source Procedure Growth Status 03/16/24 23:00 Nose MRSA Screen - Final Complete Labs and/or images reviewed: Labs reviewed by me, Image(s) reviewed by me Problem List/Assessment/Plan Problem List/Assessment/Plan Mechanical fall without LOC Dizziness unspecified Patient has chronic dizziness, since 2 years post CVA Head CT scan, carotid ultrasound are normal Check orthostatic vitals Continue telemetry Nephrolithiasis status post left nephrostomy tube History of kidney stone Patient has an appointment with the Urology at outpatient basis Monitoring RACHNA, likely postrenal Kidney ultrasound Monitoring Uncontrolled hypertension Resume medical Hydralazine 10 mg p.r.n. DVT prophylaxis Lovenox Code status Full Code Diet Cardiac diet Case discussed with Dr. Lozoya Plan discussed with: Patient, Daughter, Son, Other (RN) My Orders My Orders Orders - NIC WRAY Procedure Category Date Status Time Orthostatic Vital ORDERS 03/17/24 Transmitted Signs 08:28 Enoxaparin Sodium PHA 03/17/24 In Process (Lovenox) 10:29 NIC WRAY Mar 17, 2024 18:44 CATHY RDZ MD Mar 17, 2024 20:28
[2024-03-18] VITALS (7 sets, daily range): BP systolic 104–144; BP diastolic 72–84; PULSE 69–90; RESP 16–20; TEMP 36.8; O2SAT 85–96
[2024-03-18 07:39] LABS: Amphetamine Screen, Urine Neg (NEGATIVE); Barbiturate Scree,Urine Neg (NEGATIVE); Benzodiazephine Screen, Urine Neg (NEGATIVE)
[2024-03-18 07:40] LABS: Cocaine Screen, Urine Neg (NEGATIVE); Opiate Scree,Urine Neg (NEGATIVE)
[2024-03-18 07:41] LABS: Cannabinoid Screen, Urine Neg (NEGATIVE); Creatinine, Urine 127.1 mg/dL (30.0-125.0); Phencyclidine Screen, Urine Neg (NEGATIVE)
[2024-03-18 07:50] LABS: Urine Bacteria FEW /hpf (None Seen); Urine Blood 2+ /uL (Negative); Urine Budding Yeast MANY /hpf (None Seen); Urine Clarity Turbid (Clear); Urine Color Light-Orange (Yellow); Urine Protein, UAD 2+ (Negative); Urine Specific Gravity 1.013 (1.001-1.035); Urine Urobilinogen Normal (Negative); Urine WBC 334 /hpf (0 - 5)
[2024-03-18 09:24] LABS: Basophils # (auto) 0.1 10 ^3/uL (0-0.2); Basophils % (auto) 1.4 % (0.0-2.0); Eosinophils # (auto) 0.4 10 ^3/uL (0-0.8); Eosinophils % (auto) 4.5 % (0.0-7.0); Hematocrit 32.4 % (36.0-46.0); Hemoglobin 10.6 g/dL (12.2-16.2); Lymphocytes % (auto) 12.3 % (10.0-50.0); Mean Corpuscular Hemoglobin 28.9 pg (28.0-32.0); Mean Corpuscular Hgb Conc. 32.8 g/dL (32.0-36.0); Mean Corpuscular Volume 88.2 fL (80.0-100.0); Monocytes % (auto) 12.2 % (0.0-12.0); Neutrophils # (auto) 5.9 10 ^3/uL (1.6-8.6); Neutrophils % (auto) 69.6 % (37.0-80.0); Platelet Count (auto) 214 10^3/uL (140-450); Red Blood Cells 3.68 10^6/uL (4.0-5.20); Red Cell Distribution Width 14.9 % (11.8-14.3); White Blood Cell 8.4 10^3/uL (4.4-10.8)
[2024-03-18 09:35] LABS: Albumin 3.2 g/dL (3.2-4.8); Alkaline Phosphatase 70 U/L (46-116); Anion Gap 4 (5-15); Aspartate Aminotransferase 10 U/L (13-40); Blood Urea Nitrogen 14 mg/dL (9-23); Calcium 8.8 mg/dL (8.7-10.4); Carbon Dioxide 31 mmol/L (20-31); Chloride 106 mmol/L (98-107); Glucose 92 mg/dL (74-106); Potassium 3.5 mmol/L (3.5-5.1); Sodium 141 mmol/L (136-145)
[2024-03-18 09:36] LABS: Bilirubin, Total 0.5 mg/dL (0.2-1.0); Total Protein 5.5 g/dL (5.7-8.2)
[2024-03-18 10:07] LABS: Alanine Aminotransferase < 9 U/L (7-40)
--- NOTE | 2024-03-18 15:08 | DVHDSRES ---
Discharge Summary Date of Admission Resident Creating Document: NIC WRAY RESDIENT Mar 16, 2024 at 20:25 Date of Discharge: Mar 18, 2024 Admitting Diagnosis Dizziness Labs/Diagnostic Data: Laboratory Results Test 03/18/24 08:48 03/18/24 05:37 03/17/24 05:54 03/16/24 13:10 White Blood Count 8.4 10^3/uL (4.4-10.8) Red Blood Count 3.68 10^6/uL (4.0-5.20) Hemoglobin 10.6 g/dL (12.2-16.2) Hematocrit 32.4 % (36.0-46.0) Mean Corpuscular Volume 88.2 fL (80.0-100.0) Mean Corpuscular Hemoglobin 28.9 pg (28.0-32.0) Mean Corpuscular Hemoglobin Concent 32.8 g/dL (32.0-36.0) Red Cell Distribution Width 14.9 % (11.8-14.3) Platelet Count 214 10^3/uL (140-450) Mean Platelet Volume 10.1 fL (6.9-10.8) Neutrophils (%) (Auto) 69.6 % (37.0-80.0) Lymphocytes (%) (Auto) 12.3 % (10.0-50.0) Monocytes (%) (Auto) 12.2 % (0.0-12.0) Eosinophils (%) (Auto) 4.5 % (0.0-7.0) Basophils (%) (Auto) 1.4 % (0.0-2.0) Neutrophils # (Auto) 5.9 10 ^3/uL (1.6-8.6) Lymphocytes # (Auto) 1.0 10 ^3/uL (0.4-5.4) Monocytes # (Auto) 1.0 10 ^3/uL (0-1.3) Eosinophils # (Auto) 0.4 10 ^3/uL (0-0.8) Basophils # (Auto) 0.1 10 ^3/uL (0-0.2) Nucleated Red Blood Cells 0.0 % Sodium Level 141 mmol/L (136-145) Potassium Level 3.5 mmol/L (3.5-5.1) Chloride Level 106 mmol/L (98-107) Carbon Dioxide Level 31 mmol/L (20-31) Anion Gap 4 (5-15) Blood Urea Nitrogen 14 mg/dL (9-23) Creatinine 1.56 mg/dL (0.550-1.02) Glomerular Filtration Rate Calc 34 mL/min (>90) BUN/Creatinine Ratio 9.0 (10.0-20.0) Serum Glucose 92 mg/dL (74-106) Calcium Level 8.8 mg/dL (8.7-10.4) Total Bilirubin 0.5 mg/dL (0.2-1.0) Aspartate Amino Transferase (AST) 10 U/L (13-40) Alanine Aminotransferase (ALT) < 9 U/L (7-40) Alkaline Phosphatase 70 U/L (46-116) Total Protein 5.5 g/dL (5.7-8.2) Albumin 3.2 g/dL (3.2-4.8) Urine Color Light-orange (Yellow) Urine Clarity Turbid (Clear) Urine pH 6.0 (5.0-9.0) Urine Specific [place] 1.013 (1.001-1.035) Urine Protein 2+ (Negative) Urine Ketones Negative (Negative) Urine Blood 2+ /uL (Negative) Urine Nitrite Negative (Negative) Urine Bilirubin Negative (Negative) Urine Urobilinogen Normal mg/dL (Negative) Urine Leukocyte Esterase 3+ /uL (Negative) Urine RBC 67 /hpf (0 - 4) Urine WBC 334 /hpf (0 - 5) Urine Squamous Epithelial Cells Few /hpf (<5) Urine Bacteria Few /hpf (None Seen) Urine Yeast (Budding) Many /hpf (None Seen) Urine Creatinine 127.10 mg/dL (30.0-125.0) Urine Sodium 55 mmol/L (40-220) Urine Glucose Normal mg/dL (Normal) Urine Opiates Screen Neg (NEGATIVE) Urine Fentanyl Screen Neg (NEGATIVE) Urine Barbiturates Screen Neg (NEGATIVE) Urine Phencyclidine Screen Neg (NEGATIVE) Urine Amphetamines Screen Neg (NEGATIVE) Urine Benzodiazepines Screen Neg (NEGATIVE) Urine Cocaine Screen Neg (NEGATIVE) Urine Cannabinoids Screen Neg (NEGATIVE) Prothrombin Time 11.9 sec (9.3-11.8) Prothrombin Time INR 1.13 (0.9-1.15) Activated Partial Thromboplast Time 25.9 SEC (24.5-34.5) Hemoglobin A1c 5.1 % A1C (<5.7) B-Type Natriuretic Peptide 63.84 pg/mL (0-100) Vitamin B12 Level 556 pg/mL (211-911) Vitamin D 25-Hydroxy 31.5 ng/mL (30.0-100) Thyroid Stimulating Hormone (TSH) 1.35 uIU/mL (0.55-4.78) Troponin I High Sensitivity 7 ng/L (</=34) Test 03/16/24 12:20 POC Glucose 96 mg/dl (70-106) Other Laboratory Tests 03/18/24 08:48 Brief Hx & Hospital Course: SOCORRO PENDLETON is a 74-year-old female with a PMH of CHF, HTN, nephrolithiasis, aneurysm, CVA, and COPD who presented to the ED with the chief complaint of dizziness. The patient has dizziness since 2 years(post CVA) which has recently increased. This morning, the patient went to visit her PCP and felt dizzy while ambulating. The PCP advised her to go to the ED for further management. The patient reported that yesterday she had a mechanical fall at home due to dizziness without LOC, nausea, or vomiting. She also noted swelling of both lower limbs. The patient was recently discharged from this facility 1 week ago after being treated for sepsis and was recommended to use a wheelchair and home health care. On my assessment, the patient denies headache, chest pain, SOB, nausea, vomiting, fever, chills, and other associated symptoms. PMHx: CHF, HTN, nephrolithiasis, aneurysm, CVA, COPD PSHx: Nephrostomy tube placement left-sided due to renal stone Family history: Noncontributory Social history: The patient lives at home with her daughter, smokes 3 cigarettes per day, but denies alcohol or illicit drug abuse Home medication: Losartan, metoprolol, Plavix Allergic history: On physical examination, the patient was unremarkable. Lab studies showed potassium at 3.2, otherwise within normal limits. The patient was admitted for evaluation of dizziness. CT scan showed ischemic changes, carotid ultrasound was normal, and renal ultrasound was also normal. On chest x-ray was also unremarkable. Fall precautions were taken and home medications were resumed. Injection Lasix were given for the volume overload. Electrolyte imbalance was supplemented. Breathing treatment for given for the shortness of breath. And the patient was per the prophylactic Lovenox for the prevention of DVT. On 03/18/2024, the patient was feeling better and had not dizziness. Patient was able to walk and had no dizziness during the recent walking. Discharge plan discussed with the patient with the patient was discharged on home medication. The patient was recommended to follow up with the Urology for the left nephrostomy. And the patient was also recommended to follow up with the PCP within 1 week after discharge and Cardiology on outpatient basis. Operations or Procedures [place] [address] Ph: [phone] DIAGNOSTIC IMAGING Diagnostic Imaging Report : [id number] Signed PATIENT: SOCORRO PENDLETON ACCT: [id number] UNIT: [id number] : 1950 LOC: ER ROOM / BED: / AGE / SEX: 74 / F ADM STATUS: REG ER SERVICE 1518 ORDERING PHYSICIAN: BLANCO AHUJA MD PROCEDURE(s): HWOCT - HEAD WITHOUT CONTRAST REASON: dizzy ORDER NUMBER(s): [id number], ACCESSION NUMBER(s): [id number] EXAM: CT HEAD WITHOUT CONTRAST HISTORY: dizzy COMPARISON: None TECHNIQUE: Axial images of the head were obtained and reformatted in coronal and sagittal planes. All CT scans at this medical facility are performed using dose modulation techniques as appropriate to a performed exam including the following: Automated exposure control was utilized; adjustment of the MA and/or KV according to patient size; and use of iterative reconstruction technique. CT Dose: CTDI volume is 52.71 mGy. Dose-length product is 863.9 mGy*cm FINDINGS: there is age concordant generalized parenchymal volume loss. There is no evidence of acute intracranial hemorrhage, mass, mass effect midline shift. There are hypodense foci in the bilateral basal ganglia and in the right thalamic region likely chronic lacunar infarcts. There are chronic microvascular ischemic changes in the supratentorial white matter. There is no hydrocephalus or extra-axial fluid collection. The doan-white matter differentiation appears maintained. The calvarium is intact. There is a retention cysts in the left maxillary sinus. There is partial opacification of the left mastoid air cells. IMPRESSION: 1. No acute intracranial process. 2. Chronic ischemic changes as described above. HS:Y ATED BY: SALEEM MAZARIEGOS MD DICTATED DATE/TIME: 03/16/241546 SIGNED BY: SALEEM MAZARIEGOS MD SIGNED DATE/TIME: 03/16/241546 CC: [place] [address] Ph: [phone] DIAGNOSTIC IMAGING Diagnostic Imaging Report : [id number] Signed PATIENT: SOCORRO PENDLETON ACCT: [id number] UNIT: [id number] : 1950 LOC: TELE ROOM / BED: [address] [place] [address] AGE / SEX: 74 / F ADM STATUS: ADM IN SERVICE 24 ORDERING PHYSICIAN: RHETT TAVERAS RESIDENT PROCEDURE(s): CARCL - CAROTID DUPLX W COLOR DOP REASON: dizziness ORDER NUMBER(s): [id number], ACCESSION NUMBER(s): [id number] CAROTID DOPPLER ULTRASOUND HISTORY: dizziness COMPARISON: None TECHNIQUE: Real time doan scale, color Doppler, and spectral duplex images are obtained through the carotid and vertebral arteries. Findings: Peak systolic velocity right internal carotid artery is 87 cm/s and right common carotid artery is 47 cm/s. Ratio is 1.8. Antegrade flow noted in right vertebral artery. No significant atherosclerotic plaque noted within the right carotid arterial system. Peak systolic velocity left internal carotid artery is 85 cm/s and left common carotid artery is 51 cm/s. Ratio is 1.7. Antegrade flow noted in left vertebral artery. No significant atherosclerotic plaque noted within the left carotid arterial system. Impression: 1. No evidence of hemodynamically significant stenosis within the bilateral carotid arterial systems. 2. Antegrade flow within bilateral vertebral arteries. Stenosis ICA/CCA PSV ratio PSV 0-40% < 1.5 25-110 cm/s 40-59% < 1.8 > 120 cm/s 60-79% 1.8-3.7 > 130 cm/s 80-99% > 3.7 < 25 cm/s, > 250 cm/s ATED BY: CYN NEGRETE DO DICTATED DATE/TIME: 03/16/242116 SIGNED BY: CYN NEGRETE DO SIGNED DATE/TIME: 03/16/242116 CC: Condition at Discharge: Good Final Diagnosis/Problems List Dizzines, likely due to previous CVA History of CVA Mechanical fall without LOC Nephrolithiasis status post left nephrostomy tube History of kidney stone RACHNA, likely postrenal Ruled out TIA Acute on chronic congestive heart failure Uncontrolled hypertension COPD, stable Abdominal aortic aneurysm Discharge Disposition: Home Discharge Instruct/Medications Diet: Cardiac 2g Na,low cholest Activity: Light activity Follow Up/Referral: follow up with the PCP within week after dischage follow up with cardiology within one after discharge follow up within with urology on out patient basis Medications: continue home medication Discharge Statement: "Patient was advised to return to the ER or call 911 if any headaches, dizziness, shortness of breath, chest pain, abdominal pain, bleeding, fevers, or worsening of medical condition. Patient was counseled about treatment plan, medications, possible side effects, patientverbalized understanding. All questions were answered to the best of my ability. This discharge took greater then 30 minutes in planning, reviewing documentation, counseling the patient, and discussing with other team members." ASSESSMENT ASSESSMENT Assessment Dizzines, likely due to previous CVA Date of Service: Mar 18, 2024 Billing Provider: MICHELE ROJAS MD Common Visit Codes: 70460-SZT/OBS DISCH DAY >30min NIC WRAY RESDIENT Mar 18, 2024 15:08 MICHELE ROJAS MD Mar 19, 2024 16:26
== END 2024-03-18 15:52 | disposition home or self-care (01) | DRG 291 ==
LOC: ER 12:02 → TELE 20:25 → TELE-WESTW 22:39
PROVIDERS: ADMIT Student in an Organized Health Care Education/Training Program; ATTEND Student in an Organized Health Care Education/Training Program
DX: I13.0 Hypertensive heart and chronic kidney disease with heart failure and stage 1 through stage 4 chronic kidney disease, or unspecified chronic kidney disease (principal); I50.33 Acute on chronic diastolic (congestive) heart failure; N17.9 Acute kidney failure, unspecified; N18.9 Chronic kidney disease, unspecified; J44.9 Chronic obstructive pulmonary disease, unspecified; I71.40 Abdominal aortic aneurysm, without rupture, unspecified; Z79.899 Other long term (current) drug therapy; Z87.442 Personal history of urinary calculi; Z86.73 Personal history of transient ischemic attack (TIA), and cerebral infarction without residual deficits; W18.39XA Other fall on same level, initial encounter; Y93.89 Activity, other specified; Y92.89 Other specified places as the place of occurrence of the external cause; Y99.8 Other external cause status
CPT/HCPCS: 36415; 70450; 71045; 76775; 80048; 80053; 80307; 81001; 82306; 82570; 82607; 82962; 83036; 83880; 84300; 84443; 84484; 85025; 85610; 85730; 87081; 93886; 99291; G0378